=== PATIENT | female | born 1945 | race Two or more races ===

== ENCOUNTER 2017-08-03 18:18 | Inpatient (IN) | payer MEDICARE, OTHER ==
[~2017-08-03] VITALS: Ht 160 cm; Wt 65.8 kg
--- NOTE | 2017-08-03 19:15 | NUR ---
DR CHATMAN NOTIFIED OF PATIENT ADMISSION.
--- NOTE | 2017-08-03 19:30 | NUR ---
RECEIVED PATIENT AWAKE, ALERT, AND ORIENTED X4 WITHOUT C/O PAIN OR DISCOMFORT. LEFT KNEE SURGICAL SITE WITH JOSE WRAP, CLEAN,DRY, AND INTACT. CSM ADEQUATE TO LEFT TOES. MINIMAL SWELLING NOTED AT LEFT LEG. DOES NOT WANT HER LEG ELEVATED ON A PILLOW. ORIENTED TO ROOM, CALL LIGHT, TV, AND ARU ROUTINE.DAUGHTER AT BEDSIDE.ALL QUESTIONS ANSWERED. CALL LIGHT WITHIN REACH AAT.
[2017-08-03 20:00] VITALS: BP 145/63
--- NOTE | 2017-08-03 20:40 | NUR ---
TRANSFERRED PATIENT VIA BED AND ALL BELONGINGS TO ROOM 123A, FOR HOSPITAL CONVENIENCE AND TO INCREASE PATIENT/FAMILY COMFORT AND SATISFACTION. SNACK GIVEN. CALL LIGHT WITHIN REACH.
--- NOTE | 2017-08-03 21:40 | NUR ---
DR RHONDA CASTELAN NOTIFIED OF NEED TO COMPLETE MED RECON. STATED TO CONTINUE ALL MED ORDERS FROM [facility] FROM THE TMS TRANSFER FORM. NOTIFIED OF 2000 VITALS AND PATIENT GENERAL CONDITION FROM MY INITIAL SHIFT ASSESSMENT.
[2017-08-04] MEDS ORDERED: DULO60CA45 PO (01:26)
[2017-08-04] MEDS ORDERED: DIPH-530 PO (01:26)
[2017-08-04] MEDS ORDERED: PANT40TA4 PO (01:26)
[2017-08-04] MEDS ORDERED: ASPI-612 PO (01:26)
[2017-08-04] MEDS ORDERED: METO-304 PO (01:26)
[2017-08-04] MEDS ORDERED: AMIT25TA9 PO (01:26)
[2017-08-04] MEDS ORDERED: CLON0.1T PO (01:26)
[2017-08-04] MEDS ORDERED: LEVO88TA5 PO (01:26)
[2017-08-04] MEDS ORDERED: ATOR80TA PO (01:26)
[2017-08-04] MEDS ORDERED: DOCU100C36 PO (01:26)
[2017-08-04] MEDS ORDERED: CHOL20004 PO (01:26)
[2017-08-04] MEDS ORDERED: MAG355OR18 PO (02:03)
--- NOTE | 2017-08-04 06:00 | NUR ---
PATIENT DID NOT SLEEP WELL LAST NIGHT. C/O BEING SO TIRED FROM THE TRANSFER FROM [facility] SO LATE, AND NEED TO TRANSFER OUT OF ROOM 126/A D/T NO AIR CONDITIONING IN THAT ROOM.DID NOT DISTURB PATIENT AFTER I GAVE HER MORNING SYNTHROID. ALLOWED TO SLEEP.CALL LIGHT WITHIN REACH AAT
--- NOTE | 2017-08-04 07:00 | NUR ---
SYNTHROID 88 MCG GIVEN X1 ONLY. DUPLICATE ORDER BY OVERRIDE SEEN
[2017-08-04 07:25] VITALS: BP 147/77
--- NOTE | 2017-08-04 20:00 | NUR ---
Received pt on bed awake, alert and oriented x4. Able to make needs known. No acute distress noted. No complaints of pain. No SOB. Vital signs stable. Call light within reach. All needs attended.
--- NOTE | 2017-08-04 20:00 | NUR ---
Received pt on bed alert and awake. Able to make needs known. No acute distress noted. No complaints of pain or discomfort. No SOB. Vital signs stable BP 122/66, HR 94, RR 20, Temp 97.5, O2 sat 93%. On O2 via nasal cannula. Kept clean, dry and comfortable. Call light within reach. All needs attended. will continue to monitor. Addendum: 08/05/17 at 1837 by CIARRA QUINTANA RN wrong patient chart opened for this note, this note is not relevant to this patient
[2017-08-04 20:19] VITALS: BP 124/85
--- NOTE | 2017-08-04 20:30 | NUR ---
patient refused to take her eyedrops. Patient verbalized "I'm gonna take my eyedrops tomorrow. I just want to take my pills and sleep tonight". Explained risk and benefits, pt still refuses. Call light within reach. All needs attended. Will continue to monitor.
--- NOTE | 2017-08-05 06:40 | NUR ---
Patient slept well. Denies any pain. Calm and cooperative to care. Kept clean, dry and comfortable. Call light within reach. All needs attended.
[2017-08-05 07:10] VITALS: BP 130/67
[2017-08-05 07:24] LABS: BASOPHILS % (AUTO) 0.4 % (0.0-2.0); EOSINOPHILS # (AUTO) 0.5 K/uL (0.0-0.7); EOSINOPHILS % (AUTO) 7.3 % (0.0-7.0); HEMATOCRIT 27.1 % (37-47); LYMPHOCYTES % (AUTO) 15.4 % (20.5-51.5); MEAN CORPUSCULAR HGB CONC 33 g/dL (32.0-37.0); MEAN CORPUSCULAR VOLUME 87.8 FL (81.0-99.0); MONOCYTES # (AUTO) 0.5 K/UL (0.1-1.30); MONOCYTES % (AUTO) 8.5 % (0.0-11.0); NEUTROPHILS # (AUTO) 4.3 K/UL (1.8-8.9); NEUTROPHILS % (AUTO) 68.4 % (38.5-71.5); PLATELET COUNT (AUTO) 336 K/UL (150-450); RED BLOOD CELL COUNT(AUTO) 3.09 MIL/UL (4.2-5.4); WHITE BLOOD COUNT (AUTO) 6.3 K/UL (4.0-11.2)
[2017-08-05 07:35] LABS: CARBON DIOXIDE 31 mmol/L (21-32); CHLORIDE 105 mmol/L (98-107); CREATININE 0.8 mg/dL (0.6-1.3); GLUCOSE 101 mg/dL (74-106); MAGNESIUM 1.8 mg/dL (1.8-2.4); PHOSPHOROUS 3.6 mg/dL (2.5-4.9); POTASSIUM 3.7 mmol/L (3.5-5.1); UREA NITROGEN, BLOOD 16 mg/dL (7-18)
--- NOTE | 2017-08-05 19:30 | NUR ---
Report received. Patient AAO, primary language is Sami but able to communicate needs well with adequate Sami. NAD noted. Assessment completed. Addendum: 08/06/17 at 0253 by BRIGETTE DONOHUE RN Amended: Links added. Addendum: 08/06/17 at 0255 by BRIGETTE DONOHUE RN Amended: Links added. Addendum: 08/06/17 at 0258 by BRIGETTE DONOHUE RN Amended: Links added.
--- NOTE | 2017-08-05 20:00 | NUR ---
Patient refused CPM machine for tonight despite explanation. Verbalized desire to sleep. Advised appropriately. Addendum: 08/06/17 at 0255 by BRIGETTE DONOHUE RN Amended: Links added. Addendum: 08/06/17 at 0258 by BRIGETTE DONOHUE RN Amended: Links added.
[2017-08-05 20:05] VITALS: BP 156/68
--- NOTE | 2017-08-06 00:15 | NUR ---
Up to the [facility] with very minimal assistance. Voiding without difficulty. Addendum: 08/06/17 at 0258 by BRIGETTE DONOHUE RN Amended: Links added.
--- NOTE | 2017-08-06 06:50 | NUR ---
Slept well during the night. NAD noted.
--- NOTE | 2017-08-06 07:45 | NUR ---
Pt. A/A/O,eating breakfast,no s/s of distress,denies pain.
[2017-08-06 08:00] VITALS: BP 103/67
--- NOTE | 2017-08-06 14:42 | NUR ---
Rehab Team Conference 08/06/17
--- NOTE | 2017-08-06 18:00 | NUR ---
Pt.eating dinner,good appetite,watching TV,denies pain @ time.family at bedside.
--- NOTE | 2017-08-06 18:00 | NUR ---
Pt.eating dinner,good appetite,watching TV,denies pain @ time.family at bedside.
[2017-08-06 20:00] VITALS: BP 147/76
--- NOTE | 2017-08-06 21:30 | NUR ---
Patient refused Restasis eye drop medication, stating that she will take it tomorrow. Will continue to monitor
--- NOTE | 2017-08-07 07:30 | NUR ---
Patient noted sitting in chair next to bed awaiting breakfast, no signs of distress or complaints of pain noted, call light in reach, plan of care discussed, bed in lowest position, all needs met at this time.
[2017-08-07 08:40] VITALS: BP 107/64
--- NOTE | 2017-08-07 18:38 | NUR ---
pt stable throughout shift. doctor forgot to reapply bandage when taken off. Physical therapist reapplied bandage. incision intact no signs of infection. pt had pain on right knee when exercising probably due to rheumatoid arthritis. pt assisted in transfers and assisted when needed. will endorse new developments to instrument mechanic nurse.
[2017-08-07 20:00] VITALS: BP 124/56
--- NOTE | 2017-08-07 21:28 | NUR ---
RECEIVED PATIENT IN BED ASLEEP, NO SOB NO CHEST PAIN NOTED, LEFT KNEE DRESSISNG INTACT, CLEAN AND DRY, COMPLAIN OF R KNEE PAIN VS LEFT KNEE SURGICAL SITE, REQUEST TYLENOL 650MG PO FOR PAIN CALL LIGHT REACH.
--- NOTE | 2017-08-08 07:05 | NUR ---
PATIENT SLEPT MOST OF THE NIGHT, NO SOB NO CHEST PAIN NOTED, COMPLAIN OF RIGHT KNEE, MEDICATED EARLIER WITH HELP AFTER ONE HOUR, CONTINENT OF BOWEL AND BLADDER, MINIMUN ASSIST WITH TOILETING, LEFT KNEE DRESSING INTACT, NO DRAINING NOTED, CLEAN AND DRY, CALL LIGHT WITHIN REACH. CALL LIGHT WITHIN REACH.
[2017-08-08 08:00] VITALS: BP 122/43
--- NOTE | 2017-08-08 13:35 | NUR ---
Top Waddy: SW met with pt at bedside to assess needs and provide support. Pt is a 72-year-old female admitted to ARU for functional decline and impaired mobility. Pt was hospitalized initially for joint replacement. Per pt, this is her 3rd knee surgery. She reports to live at home with her daughter who provides care. Per pt, she has a strong support system. However, per pt she believes her daughter is too busy managing a daycare to provide additional care for her. Pt stated her goal is to "return home" and "walk again." She reports to use a walker and a wheelchair at home. Pt reported that is coping well with PT goals, and feels that she will benefit. Pt stated "I know this will benefit me instead of a regular rehab" when referring to ARU. SW discussed the options of a head of commission department CG at home, and pt reported she was open to referrals. SW engaged in active listening. SW will provide linkage to community resources (caregiving). SW will provide linkage to case management (home health). SW will provide pt and family support throughout hospitalization.
--- NOTE | 2017-08-08 16:47 | NUR ---
pt has been up in gym most of am shift and c/o right leg ain due to putting more pressure on it due to left knee s/p surgery. Medicated with norco 5/325 times two with good effect sleeping and arousable at this time
--- NOTE | 2017-08-08 19:16 | NUR ---
RECEIVED PATIENT IN BED, NO SOB NO CHEST PAIN, COMPLAIN OF R KNEE PAIN, WILL MEDICATE FOR PAIN, LEFT KNEE SURGICAL SITE DRESSING INTACT, KEPT CLEAN AND DRY, CALL LIGHT WITHIN REACH.
[2017-08-08 20:24] VITALS: BP 133/70
--- NOTE | 2017-08-09 07:07 | NUR ---
PATIENT SLEPT MOST OF THE NIGHT, NO SOB, NO CHEST PAIN, USES BESIDE COMMODE FOR ELIMINATION, CALL LIGHT WITHIN REACH, NO S/S OF DISTRESS.
[2017-08-09 09:28] VITALS: BP 123/71
[2017-08-09 20:56] VITALS: BP 143/68
[2017-08-10 07:20] VITALS: BP 130/78
[2017-08-10 20:00] VITALS: BP 121/54
[2017-08-11 07:20] VITALS: BP 133/72
--- NOTE | 2017-08-11 07:30 | NUR ---
Pt received sitting on chair next to bed, a/o x4, No distress noted, on R/A denies any SOB. Left knee wrapped with dressing, intact and patent. C/O of slight pain to Left knee 03/10, offer pain medication, states not at this time, she wants to eat breakfast firt. Call light within reach. Plan of care discussed.
--- NOTE | 2017-08-11 08:41 | NUR ---
Schedule medications administer PO, Pt with HR of 59 Lopressor XL held. Pt c/o of right knee pain and requesting norco, 1 tab given PO. will con't to monitor.
--- NOTE | 2017-08-11 15:23 | NUR ---
Pt noted with skin tear to Left knee, secondary to tape dressing. New order received, treatment initiated. Will con't to monitor.
--- NOTE | 2017-08-11 18:00 | NUR ---
Dr. Zarate called twice during the shift regarding staple removal order. Received no call back.
--- NOTE | 2017-08-11 18:47 | NUR ---
Pt c/o of pain 9/10 to right knee, and requesting medication. [facility] 1 tab Po given. will con't to monitor. Pt sitting on chair next to her bed, call light kept within reach. No distress noted.
[2017-08-11 20:14] VITALS: BP 156/76
[2017-08-12 07:20] VITALS: BP 146/86
--- NOTE | 2017-08-12 08:21 | NUR ---
Reinforced bandage. Afterward patient request for total change.
[2017-08-12 09:07] VITALS: BP 142/85
--- NOTE | 2017-08-12 09:27 | NUR ---
Dressing changed as per pt request. Pateint talking on telephone at this time.
--- NOTE | 2017-08-12 12:20 | NUR ---
IV site n/a. ID band removed. Pt provided walker as per DC Plan. Patient MD paged to reconcile medication. Incision site of left knee clean, dry, and intact with clean dressing placed after photo taken. Aware of follow up appointment on with Doctor Guillermina as planned. Ambulatory with a steady gate for discharge. All medication and follow up instruction provided. Verbalizes understanding.
== END 2017-08-12 12:20 | disposition home health service (06) | DRG 950 ==
PROVIDERS: ADMIT Physical Medicine & Rehabilitation Pain Medicine; ATTEND Physical Medicine & Rehabilitation Pain Medicine
DX: T84.54XD Infection and inflammatory reaction due to internal left knee prosthesis, subsequent encounter (principal); M06.9 Rheumatoid arthritis, unspecified; M35.00 Sjogren syndrome, unspecified; D63.8 Anemia in other chronic diseases classified elsewhere; I10 Essential (primary) hypertension; F32.9 Major depressive disorder, single episode, unspecified; F41.9 Anxiety disorder, unspecified; I25.10 Atherosclerotic heart disease of native coronary artery without angina pectoris; M19.90 Unspecified osteoarthritis, unspecified site; Z96.652 Presence of left artificial knee joint; R26.9 Unspecified abnormalities of gait and mobility; R53.1 Weakness; Z86.14 Personal history of Methicillin resistant Staphylococcus aureus infection; E03.9 Hypothyroidism, unspecified; E55.9 Vitamin D deficiency, unspecified; Z91.81 History of falling; Z79.899 Other long term (current) drug therapy; K21.9 Gastro-esophageal reflux disease without esophagitis
CPT/HCPCS: 36415; 70030-TC; 83735; 84100; 85025; 92526; 92610; 97110; 97112; 97116; 97165; 97530; 97535; A4663